=== PATIENT | female | born 1975 | race Caucasian/White ===

== ENCOUNTER 2022-11-20 18:14 | Emergency (ER) | payer OTHER ==
[~2022-11-20] VITALS: Ht 152.4 cm; Wt 81.6 kg
[~2022-11-20 18:14] MED LIST: AMOXICILLIN500 M1 PO; MEDROL4 MG PO; OMEPRAZOLE40 MG PO; SINGULAIR10 MG PO; SYNTHROID88 MCG PO; ZANTAC300 MG PO
[2022-11-20] MEDS ORDERED: PANTOPRAZOLE SO40 M2 PO (18:30)
[2022-11-20] MEDS ORDERED: COZAAR100 MG PO (18:30)
== END 2022-11-20 22:34 | disposition home or self-care (01) ==
LOC: ER 18:14
DX: J40 Bronchitis, not specified as acute or chronic (principal); Z20.822 Contact with and (suspected) exposure to COVID-19; I10 Essential (primary) hypertension

== ENCOUNTER 2023-02-17 12:06 | Emergency (ER) | payer OTHER ==
[~2023-02-17] VITALS: Ht 152.4 cm; Wt 81.6 kg
[~2023-02-17 12:06] MED LIST changes: +COZAAR100 MG PO; +PANTOPRAZOLE SO40 M2 PO
== END 2023-02-17 15:50 | disposition home or self-care (01) ==
LOC: ER 12:06
DX: U07.1 COVID-19 (principal)

== ENCOUNTER 2023-03-23 18:54 | Emergency (ER) | payer OTHER ==
[~2023-03-23] VITALS: Ht 152.4 cm; Wt 83.9 kg
== END 2023-03-23 22:32 | disposition home or self-care (01) ==
LOC: ER 18:54
DX: J45.901 Unspecified asthma with (acute) exacerbation (principal); I10 Essential (primary) hypertension; E03.9 Hypothyroidism, unspecified

== ENCOUNTER 2023-08-02 12:11 | Emergency (ER) | payer OTHER ==
[~2023-08-02] VITALS: Ht 152.4 cm; Wt 80.7 kg
[2023-08-02] MEDS ORDERED: METFORMIN HCL500 MG PO (13:20)
[2023-08-02 18:01] LABS: HEMATOCRIT 38.2 % (36.0-45.00); HEMOGLOBIN 12.6 g/dL (12.0-15.00); MEAN CELL VOLUME 79.4 fL (80.00-100.00); MEAN CORPUSCULAR HEMOGLOBIN 26.1 pg (27.00-32.0); MEAN CORPUSCULAR HGB CONC 32.9 g/dl (32.0-36.0); PLATELET COUNT 337 K/uL (150-450); RED BLOOD COUNT 4.82 M/uL (4.00-6.00); RED CELL DISTRIBUTION WIDTH 16.2 % (11.5-14.5)
[2023-08-02 18:19] LABS: INR 0.96; PROTHROMBIN TIME 10.1 SECONDS (9.0-11.5)
[2023-08-02 18:22] LABS: D DIMER 0.22 MG/L; PARTIAL THROMBOPLASTIN TIME 27.1 SECONDS (22.0-34.0)
[2023-08-02 18:23] LABS: CALCIUM 9.2 mg/dL (8.5-10.1); CREATININE SERUM 0.87 mg/dL (0.55-1.02); GFR 68.92; POTASSIUM 3.45 mEq/L (3.5-5.1)
== END 2023-08-02 20:16 | disposition home or self-care (01) ==
LOC: ER 12:11
PROVIDERS: Nurse Practitioner Family
DX: L02.413 Cutaneous abscess of right upper limb (principal); I10 Essential (primary) hypertension; E03.8 Other specified hypothyroidism